=== PATIENT | female | born 1965 | race Caucasian/White ===

== ENCOUNTER 2020-06-12 08:59 | Outpatient (REF) | payer MEDICAID, SELFPAY ==
[2020-06-12 22:35] LABS: Anion Gap 8.7 mmol/L (3-11); BUN 10 mg/dL (7-18); CO2 26.3 mmol/L (21.0-32.0); CREATININE 0.65 mg/dL (0.55-1.02); Calcium 9.1 mg/dL (8.5-10.1); Calculated LDL 133 mg/dL (<100); Chloride 105 mmol/L (98-107); Cholesterol 208 mg/dL (<200); Glucose 85 mg/dL (74-106); HDL Cholesterol 60 mg/dL (40-60); Potassium 4.4 mmol/L (3.5-5.1); Sodium 140 mmol/L (136-145); Triglyceride 76 mg/dL (<150)
[2020-06-13 04:33] LABS: Vitamin D 25 Total 42.3 ng/ml (30-100)
== END 2020-06-12 09:19 ==
LOC: NCHCN 08:59
PROVIDERS: PCP Family Medicine; Visit Provider Family Medicine
DX: Z13.220 Encounter for screening for lipoid disorders (principal); Z83.3 Family history of diabetes mellitus; Z82.62 Family history of osteoporosis; Z00.00 Encounter for general adult medical examination without abnormal findings
CPT/HCPCS: 80048; 80061; 82306

== ENCOUNTER 2021-06-17 10:58 | Outpatient (REF) | payer MEDICAID, SELFPAY ==
--- NOTE | 2021-06-17 09:00 | PAPFT_PTH ---
PATIENT: Jennifer Ingram LOC: [facility]#:[id number] AGE/SX: 56/F ROOM: RE06/17/[address]: Liz Welch : 1965 BED: DIS: 06/17/2021 SPEC #: [id number] RECD: 06/17/21 17:53 STATUS: NISREEN REQ #: [id number] GEETHA: 06/17/21 09:[address]: Liz Welch DEPT: [facility] Cytology RECD BY: Amy Lugo Tissues: 1 - CX/ENDOCX FOR PAP SMEARS Procedures: PAP THIN PREP/[facility] Screening HPV DNA PROBE Comments: [id number]
== END 2021-06-17 10:59 | disposition home or self-care (01) ==
LOC: NCHCN 10:58
PROVIDERS: PCP Family Medicine; Visit Provider Family Medicine
DX: Z12.4 Encounter for screening for malignant neoplasm of cervix (principal); Z11.51 Encounter for screening for human papillomavirus (HPV)
CPT/HCPCS: 88142; 87624

== ENCOUNTER 2022-12-01 10:32 | Outpatient (REF) | payer MEDICAID, SELFPAY ==
[2022-12-01 16:15] LABS: Anion Gap 9.2 mmol/L (3-11); BUN 10 mg/dL (7-18); CO2 27.8 mmol/L (21.0-32.0); CREATININE 0.7 mg/dL (0.55-1.02); Calcium 9.3 mg/dL (8.5-10.1); Chloride 103 mmol/L (98-107); Estimated GFR 100.19 (mL/min/1.73m2); Glucose 91 mg/dL (74-106); Potassium 4.2 mmol/L (3.5-5.1); Sodium 140 mmol/L (136-145)
== END 2022-12-01 10:33 | disposition home or self-care (01) ==
LOC: NCHCN 10:32
PROVIDERS: PCP Family Medicine; Visit Provider Family Medicine
DX: R03.0 Elevated blood-pressure reading, without diagnosis of hypertension (principal)
CPT/HCPCS: 80048

== ENCOUNTER 2023-04-08 16:11 | Outpatient (REF) | payer MEDICAID, SELFPAY ==
[2023-04-08 21:01] LABS: Anion Gap 8.2 mmol/L (3-11); BUN 13 mg/dL (7-18); CO2 27.8 mmol/L (21.0-32.0); CREATININE 0.7 mg/dL (0.55-1.02); Chloride 99 mmol/L (98-107); Estimated GFR 99.57 (mL/min/1.73m2); Glucose 98 mg/dL (74-106); Potassium 3.8 mmol/L (3.5-5.1); Sodium 135 mmol/L (136-145)
[2023-04-08 21:07] LABS: Calcium 8.9 mg/dL (8.5-10.1)
== END 2023-04-08 16:12 | disposition home or self-care (01) ==
LOC: NCHCN 16:11
PROVIDERS: PCP Family Medicine; Visit Provider Family Medicine
DX: I10 Essential (primary) hypertension (principal)
CPT/HCPCS: 80048

== ENCOUNTER 2023-07-07 18:37 | Outpatient (REF) | payer MEDICAID, SELFPAY ==
[2023-07-07 20:59] LABS: Anion Gap 5.8 mmol/L (3-11); BUN 12 mg/dL (7-18); CO2 31.2 mmol/L (21.0-32.0); CREATININE 0.7 mg/dL (0.55-1.02); Calcium 9.2 mg/dL (8.5-10.1); Chloride 101 mmol/L (98-107); Estimated GFR 99.57 (mL/min/1.73m2); Glucose 75 mg/dL (74-106); Potassium 3.4 mmol/L (3.5-5.1); Sodium 138 mmol/L (136-145)
== END 2023-07-07 18:38 | disposition home or self-care (01) ==
LOC: NCHCN 18:37
PROVIDERS: PCP Family Medicine; Visit Provider Family Medicine
DX: I10 Essential (primary) hypertension (principal)
CPT/HCPCS: 80048

== ENCOUNTER 2024-06-26 11:10 | Outpatient (REF) | payer MEDICAID, SELFPAY ==
[2024-06-26 16:19] LABS: Anion Gap 7.8 mmol/L (3-11); BUN 9 mg/dL (7-18); CO2 30.2 mmol/L (21.0-32.0); CREATININE 0.6 mg/dL (0.55-1.02); Calcium 9.3 mg/dL (8.5-10.1); Calculated LDL 173 mg/dL (<100); Chloride 101 mmol/L (98-107); Cholesterol 271 mg/dL (<200); Estimated GFR 102.69 (mL/min/1.73m2); Glucose 87 mg/dL (74-106); HDL Cholesterol 82 mg/dL (40-60); Potassium 4.2 mmol/L (3.5-5.1); Sodium 139 mmol/L (136-145); Triglyceride 83 mg/dL (<150); Vitamin D 25 Total 38.9 ng/mL (30-100)
== END 2024-06-26 11:11 | disposition home or self-care (01) ==
LOC: NCHCN 11:10
PROVIDERS: PCP Family Medicine; Visit Provider Family Medicine
DX: I10 Essential (primary) hypertension (principal); M81.0 Age-related osteoporosis without current pathological fracture; Z13.220 Encounter for screening for lipoid disorders
CPT/HCPCS: 80048; 80061; 82306

== ENCOUNTER 2025-01-01 13:32 | Outpatient (REF) | payer MEDICAID, SELFPAY ==
[2025-01-01 15:47] LABS: Anion Gap 6.8 mmol/L (3-11); BUN 8 mg/dL (7-18); CO2 31.2 mmol/L (21.0-32.0); CREATININE 0.7 mg/dL (0.55-1.02); Calcium 9.1 mg/dL (8.5-10.1); Calculated LDL 136 mg/dL (<100); Chloride 98 mmol/L (98-107); Cholesterol 224 mg/dL (<200); Estimated GFR 98.95 (mL/min/1.73m2); Glucose 94 mg/dL (74-106); HDL Cholesterol 74 mg/dL (>or=50); Potassium 3.6 mmol/L (3.5-5.1); Sodium 136 mmol/L (136-145); Triglyceride 73 mg/dL (<150)
== END 2025-01-01 13:33 | disposition home or self-care (01) ==
LOC: NCHCN 13:32
PROVIDERS: PCP Family Medicine; Visit Provider Family Medicine
DX: I10 Essential (primary) hypertension (principal); E78.5 Hyperlipidemia, unspecified
CPT/HCPCS: 80048; 80061

== ENCOUNTER 2025-06-15 11:55 | Outpatient (REF) | payer MEDICAID, SELFPAY ==
--- NOTE | 2025-06-15 09:25 | SKI_PTH ---
PATIENT: Jennifer Ingram LOC: [facility]#:[id number] AGE/SX: 60/F ROOM: RE06/15/[address]: Liz Welch : 1965 BED: DIS: 06/15/2025 SPEC #: [id number] RECD: 06/18/25 12:43 STATUS: NISREEN GARCIA #: [id number] GEETHA: 06/15/25 09:[address]: Liz Welch DEPT: Surgical Specimen RECD BY: Amy Lugo Tissues: 1 - SKIN BIOPSY(SHAVE/PUNCH) Procedures: SKIN LEVEL 4 Comments: [id number]
== END 2025-06-15 11:56 | disposition home or self-care (01) ==
LOC: LBN 11:55
PROVIDERS: PCP Family Medicine; Visit Provider Family Medicine
DX: D18.01 Hemangioma of skin and subcutaneous tissue (principal)
CPT/HCPCS: 88305